=== PATIENT | female | born 1970 | race American Indian/Alaskan Native ===

== ENCOUNTER 2019-10-18 15:41 | Emergency (ER) | payer MEDICAID ==
--- NOTE | 2019-10-18 16:27 | EDM.PDOC ---
ED HPI GENERAL MEDICAL PROBLEM - General Chief Complaint: Neurological Problem Stated Complaint: MEDICAL [facility]IA [facility] Time Seen by Provider: 10/18/19 16:05 Source of Information: Reports: Patient, EMS History Limitations: Reports: No Limitations - History of Present Illness INITIAL COMMENTS - FREE TEXT/NARRATIVE: 49-year-old female with chronic seizure disorder, has occasional seizures while on her medication but a month ago she ran out of her medication and has not bothered filling the prescriptions. She does not have a phone call, she does not have a car for ride, the pharmacy does not deliver, she has several different excuses. She did not bring her empty pill bottles besides her "tore off the labels". According to the patient she has not had her medications for the past month, she had a seizure 1 week ago. She does have a contusion on her tongue but no other injury at this time, she is almost back to baseline. She was still postictal when EMS arrived in [place]. Onset: Sudden Duration: Hour(s): Location: Reports: Other (Only injury is to her tongue, no other complaints of pain) Associated Symptoms: Reports: No Other Symptoms - Related Data Allergies Allergy/AdvReac Type Severity Reaction Status Date / Time codeine Allergy Arrhythmias Verified 10/18/19 15:57 lithium Allergy Cannot Verified 10/18/19 16:37 Remember marbella Allergy Other Verified 10/18/19 16:37 nut - unspecified Allergy Rash Verified 10/18/19 16:38 sumatriptan [From Imitrex] Allergy Tachycardia Verified 10/18/19 16:37 Home Meds: Home Meds lamoTRIgine [Lamotrigine] 200 mg PO BID 10/18/19 [History] 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: Reports: 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 Social & Family History - Tobacco Use Smoking Status *Q: Current Every Day Smoker Years of Tobacco use: 35 Packs/Tins Daily: 0.1 Used Tobacco, but Quit: No - Caffeine Use Caffeine Use: Reports: None - Recreational Drug Use Recreational Drug Use: No ED ROS GENERAL - Review of Systems Review Of Systems: See Below Constitutional: Denies: Fever, Chills HEENT: Reports: Other (Contusion on her tongue, no visual changes) Respiratory: Denies: Shortness of Breath Cardiovascular: Denies: Chest Pain GI/Abdominal: Denies: Abdominal Pain, Nausea, Vomiting Skin: Reports: No Symptoms Neurological: Reports: Confusion (Still some slight confusion). Denies: Headache Psychiatric: Reports: Depression - Physical Exam Exam: See Below Exam Limited By: No Limitations General Appearance: Alert, No Apparent Distress Eye Exam: Bilateral Eye: EOMI, Normal Inspection, PERRL Throat/Mouth: Other (Small contusions on each side of the distal tongue, no laceration or active bleeding) Head Exam: Atraumatic Neck: Supple, Non-Tender Respiratory/Chest: Lungs Clear Cardiovascular: Regular Rate, Rhythm Neuro Exam (Abbreviated): Alert, Oriented, No Motor/Sensory Deficits Extremities: No: Pedal Edema Psychiatric: Normal Affect, Normal Mood Skin Exam: Warm, Dry Course - Vital Signs Last Recorded V/S: Last Vital Signs Temp 96.9 F 10/18/19 16:06 Pulse 75 10/18/19 17:44 Resp 14 10/18/19 16:58 BP 149/74 H 10/18/19 17:44 Pulse Ox 100 10/18/19 17:44 - Orders/Labs/Meds Meds: Medications Discontinued Medications Generic Name Dose Route Start Last Admin Trade Name Kevin PRN Reason Stop Dose Admin Acetaminophen 1,000 mg 10/18/19 16:53 10/18/19 16:57 Tylenol Extra Strength PO 10/18/19 16:54 1,000 mg ONETIME ONE Administration Lamotrigine 200 mg 10/18/19 16:49 10/18/19 16:57 Lamotrigine PO 10/18/19 16:50 200 mg ONETIME ONE Administration - Re-Assessments/Exams Free Text/Narrative Re-Assessment/Exam: 10/18/19 16:26 An attempt will be made to find the patient's regular medications and get her restarted. 10/18/19 16:53 Records were uncovered from [facility] that revealed that she was on lamotrigine 200 mg twice a day. She was given a 200 mg dose of lamotrigine and a prescription for 20 days worth of doses, with instructions to follow-up with her primary provider for any further prescriptions. She was also given 1000 mg for a moderate headache that she had developed after arrival. Departure - Departure Time of Disposition: 17:59 Disposition: Home, Self-Care 01 Clinical Impression: Seizure disorder, Noncompliance with medication regimen - Discharge Information Instructions: Seizure, Adult, [id number] Referrals: PCP,None [Primary Care Provider] - Forms: ED Department Discharge Care Plan Goals: It is very important that you fill your prescription and start taking your seizure medication as soon as possible. I would also recommend a recheck with your primary provider in the next 1 to 2 weeks. Sepsis Event Note - Evaluation Sepsis Screening Result: No Definite Risk - Focused Exam Date Exam was Performed: 10/19/19 Time Exam was Performed: 10:40
[2019-10-18] MEDS ORDERED: lamoTRIgine 100 MG Tab PO ONE (16:49)
[2019-10-18] MEDS ORDERED: Acetaminophen 500 MG Tab PO ONE (16:53)
== END 2019-10-18 17:59 | disposition home or self-care (01) ==
LOC: JP.ED 15:41
DX: G40.909 Epilepsy, unspecified, not intractable, without status epilepticus (principal); Z91.14 Patient's other noncompliance with medication regimen; Z88.5 Allergy status to narcotic agent; Z91.018 Allergy to other foods; Z88.8 Allergy status to other drugs, medicaments and biological substances; F17.210 Nicotine dependence, cigarettes, uncomplicated
CPT/HCPCS: 99284; A9270

== ENCOUNTER 2020-03-13 12:07 | Emergency (ER) | payer MEDICAID ==
[2020-03-13] MEDS ORDERED: Sodium Chloride 0.9% 10 ML Syringe FLUSH PRN (12:29)
[2020-03-13] MEDS ORDERED: Sodium Chloride 0.9% 1,000 ML IV SCH (12:30)
--- NOTE | 2020-03-13 12:34 | EDM.PDOC ---
ED HPI GENERAL MEDICAL PROBLEM - General Chief Complaint: Neuro Symptoms/Deficits Stated Complaint: MEDICAL VIA [facility] Time Seen by Provider: 03/13/20 12:31 Source of Information: Reports: Patient, EMS, RN Notes Reviewed History Limitations: Reports: Altered Mental Status - History of Present Illness INITIAL COMMENTS - FREE TEXT/NARRATIVE: 49-year-old female presents emergency department today via EMS services, EMS services were called to her home for reported seizure, she has a known seizure disorder. Did have altered mental status but was cooperative on arrival during transportation to the hospital she had active seizing per report by EMS was given 2.5 mg Versed, seizing stopped however she is in a post ictal obtunded state difficult to arouse at this time. Therefore no review of systems or HPI cannot be obtained from patient. Majority this is taken from chart review. Review of records so she was admitted to the hospital in [place] on February 10 at which time she had menorrhagia with significant blood loss hemoglobin was in the 4 level transfused 4 units of blood discharge hemoglobin of 9 was intended to follow-up in clinic couple days after discharge however I cannot appreciate any records from clinic follow-up. Medications indicates she is to be on lamotrigine 500 mg once a day in combination with Topamax 200 mg once a day - Related Data Allergies Allergy/AdvReac Type Severity Reaction Status Date / Time codeine Allergy Arrhythmias Verified 10/18/19 15:57 lithium Allergy Cannot Verified 10/18/19 16:37 Remember marbella Allergy Other Verified 10/18/19 16:37 nut - unspecified Allergy Rash Verified 10/18/19 16:38 sumatriptan [From Imitrex] Allergy Tachycardia Verified 10/18/19 16:37 Home Meds: Home Meds Topiramate [Topamax] 200 mg PO ASDIRECTED 03/13/20 [History] lamoTRIgine 200 mg PO ASDIRECTED 03/13/20 [History] lamoTRIgine [Lamotrigine] 300 mg PO ASDIRECTED 03/13/20 [History] Past Medical History Cardiovascular History: Reports: Hypertension Other Cardiovascular History: essential hypertension 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 Endocrine/Metabolic History: Reports: Diabetes, Type I Hematologic History: Reports: Anemia Other Hematologic History: microcytic anemia Social & Family History - Caffeine Use Caffeine Use: Reports: None ED ROS GENERAL - Review of Systems Review Of Systems: Unable To Obtain Reason Not Obtained: Postictal ED EXAM, NEURO - Physical Exam Exam: See Below Exam Limited By: Altered Mental Status General Appearance: Obtunded Eye Exam: Bilateral Eye: PERRL Respiratory/Chest: No Respiratory Distress, Lungs Clear, Normal Breath Sounds Cardiovascular: Regular Rate, Rhythm, No Murmur Course - Vital Signs Last Recorded V/S: Last Vital Signs Temp 96.8 F L 03/13/20 12:14 Pulse 92 03/13/20 15:10 Resp 15 03/13/20 15:10 BP 146/93 H 03/13/20 15:10 Pulse Ox 95 03/13/20 12:14 - Orders/Labs/Meds Orders: Active Orders 24 hr Category Date Time Status Peripheral IV Care [RC] . DIRECTED Care 03/13/20 12:30 Active DRUG SCREEN, URINE [URCHEM] Stat Lab 03/13/20 12:30 Ordered LAMOTRIGINE (LAMICTAL), SERUM Stat Lab 03/13/20 12:42 Received UA W/MICROSCOPIC [URIN] Stat Lab 03/13/20 12:29 Ordered Sodium Chloride 0.9% [Normal Saline] 1,000 ml Med 03/13/20 12:30 Active IV ASDIRECTED Sodium Chloride 0.9% [Saline Flush] Med 03/13/20 12:29 Active 10 ml FLUSH ASDIRECTED PRN Peripheral IV Insertion Adult [OM.PC] Urgent Oth 03/13/20 12:29 Ordered Medication Orders Sodium Chloride (Normal Saline) 1,000 mls @ 125 mls/hr IV ASDIRECTED DARINEL Last Admin: 03/13/20 12:54 Dose: 125 mls/hr Documented by: RL Sodium Chloride (Saline Flush) 10 ml FLUSH ASDIRECTED PRN PRN Reason: Keep Vein Open Last Admin: 03/13/20 12:54 Dose: 10 ml Documented by: RL Labs: Laboratory Tests 03/13/20 03/13/20 03/13/20 Range/Units 12:42 12:42 12:42 WBC 7.8 (4.5-11.0) K/uL RBC 4.44 (3.30-5.50) M/uL Hgb 9.7 L (12.0-15.0) g/dL Hct 32.1 L (36.0-48.0) % MCV 72 L (80-98) fL MCH 22 L (27-31) pg MCHC 30 L (32-36) % Plt Count 294 (150-400) K/uL Neut % (Auto) 85 H (36-66) % Lymph % (Auto) 9 L (24-44) % [place] % (Auto) 5 (2-6) % Eos % (Auto) 1 L (2-4) % Baso % (Auto) 0 (0-1) % Sodium 133 L (140-148) mmol/L Potassium 3.7 (3.6-5.2) mmol/L Chloride 99 L (100-108) mmol/L Carbon Dioxide 19 L (21-32) mmol/L Anion Gap 18.7 H (5.0-14.0) mmol/L BUN 11 (7-18) mg/dL Creatinine 1.2 H (0.6-1.0) mg/dL Est Cr Clr Drug Dosing TNP Estimated GFR (MDRD) 48 L (>60) Glucose 114 H (74-106) mg/dL Lactic Acid 7.2 H (0.4-2.0) mmol/L Calcium 8.6 (8.5-10.1) mg/dL Total Bilirubin 0.4 (0.2-1.0) mg/dL AST 21 (15-37) U/L ALT 22 (12-78) U/L Alkaline Phosphatase 141 H (46-116) U/L Total Protein 7.6 (6.4-8.2) g/dL Albumin 3.6 (3.4-5.0) g/dL Globulin 4.0 H (2.3-3.5) g/dL Albumin/Globulin Ratio 0.9 L (1.2-2.2) Salicylates (2.0-20.0) mg/dL Acetaminophen 0.0 L (10.0-30.0) ug/mL Ethyl Alcohol mg/dL 03/13/20 03/13/20 Range/Units 12:42 12:42 WBC (4.5-11.0) K/uL RBC (3.30-5.50) M/uL Hgb (12.0-15.0) g/dL Hct (36.0-48.0) % MCV (80-98) fL MCH (27-31) pg MCHC (32-36) % Plt Count (150-400) K/uL Neut % (Auto) (36-66) % Lymph % (Auto) (24-44) % [place] % (Auto) (2-6) % Eos % (Auto) (2-4) % Baso % (Auto) (0-1) % Sodium (140-148) mmol/L Potassium (3.6-5.2) mmol/L Chloride (100-108) mmol/L Carbon Dioxide (21-32) mmol/L Anion Gap (5.0-14.0) mmol/L BUN (7-18) mg/dL Creatinine (0.6-1.0) mg/dL Est Cr Clr Drug Dosing Estimated GFR (MDRD) (>60) Glucose (74-106) mg/dL Lactic Acid (0.4-2.0) mmol/L Calcium (8.5-10.1) mg/dL Total Bilirubin (0.2-1.0) mg/dL AST (15-37) U/L ALT (12-78) U/L Alkaline Phosphatase (46-116) U/L Total Protein (6.4-8.2) g/dL Albumin (3.4-5.0) g/dL Globulin (2.3-3.5) g/dL Albumin/Globulin Ratio (1.2-2.2) Salicylates 2.1 (2.0-20.0) mg/dL Acetaminophen (10.0-30.0) ug/mL Ethyl Alcohol < 3 mg/dL Meds: Medications Generic Name Dose Route Start Last Admin Trade Name Freq PRN Reason Stop Dose Admin Sodium Chloride 1,000 mls @ 125 mls/hr 03/13/20 12:30 03/13/20 12:54 Normal Saline IV 125 mls/hr ASDIRECTED DARINEL Administration Sodium Chloride 10 ml 03/13/20 12:29 03/13/20 12:54 Saline Flush FLUSH 10 ml ASDIRECTED PRN Administration Keep Vein Open Discontinued Medications Generic Name Dose Route Start Last Admin Trade Name Freq PRN Reason Stop Dose Admin Lamotrigine 500 mg 03/13/20 15:51 Lamotrigine PO 03/13/20 15:52 ONETIME ONE Topiramate 200 mg 03/13/20 15:51 Topamax PO 03/13/20 15:52 NOW STA Departure - Departure Time of Disposition: 15:54 Disposition: Home, Self-Care 01 Condition: Poor Clinical Impression: Seizure disorder, Noncompliance with medication regimen - Discharge Information Instructions: Seizure, Adult, [id number] Referrals: PCP,None [Primary Care Provider] - Forms: ED Department Discharge Additional Instructions: Restart your seizure medications, please followup with your primary care provider in 3-5 days if not better, please call return to the emergency depar tment with worsening of symptoms. Sepsis Event Note (ED) - Evaluation Sepsis Screening Result: No Definite Risk - Focused Exam Vital Signs: Vital Signs Temp Pulse Resp BP Pulse Ox 03/13/20 15:10 92 15 146/93 H 03/13/20 14:40 90 18 146/86 H 03/13/20 14:11 93 23 H 141/91 H 03/13/20 13:40 94 125/71 03/13/20 12:14 96.8 F L 101 H 27 H 145/65 H 95 - My Orders Last 24 Hours: My Active Orders 03/13/20 12:29 UA W/MICROSCOPIC [URIN] Stat Sodium Chloride 0.9% [Saline Flush] 10 ml FLUSH ASDIRECTED PRN Peripheral IV Insertion Adult [OM.PC] Urgent 03/13/20 12:30 Peripheral IV Care [RC] . DIRECTED DRUG SCREEN, URINE [URCHEM] Stat Sodium Chloride 0.9% [Normal Saline] 1,000 ml IV ASDIRECTED 03/13/20 12:42 LAMOTRIGINE (LAMICTAL), SERUM Stat - Assessment/Plan Last 24 Hours: My Active Orders 03/13/20 12:29 UA W/MICROSCOPIC [URIN] Stat Sodium Chloride 0.9% [Saline Flush] 10 ml FLUSH ASDIRECTED PRN Peripheral IV Insertion Adult [OM.PC] Urgent 03/13/20 12:30 Peripheral IV Care [RC] . DIRECTED DRUG SCREEN, URINE [URCHEM] Stat Sodium Chloride 0.9% [Normal Saline] 1,000 ml IV ASDIRECTED 03/13/20 12:42 LAMOTRIGINE (LAMICTAL), SERUM Stat Plan: Assessment Acuity = acute Site and laterality = generalized tonic-clonic seizure Etiology = medical compliance Manifestations = none Location of injury = Home Lab values = hemoglobin low 9.7 consistent microchromic anemia sodium low at 133 consistent hyponatremia creatinine elevated 1.2 consistent chronic renal failure stage G3 a lactic acid elevated 7.2 consistent with lactic acidosis consistent with seizure type activity alcohol is negative Plan She does admit to not taking her medications due to access, we have restarted her medications today she was post ictal for several hours but now is able to communicate she does have a ride home she states she does have access to her medications now. Have her follow-up with her primary care as needed This note was dictated using [employer] voice recognition software please call with any questions on syntax or grammar.
[2020-03-13] MEDS ORDERED: Topiramate 100 MG Tab PO STA (15:51)
[2020-03-13] MEDS ORDERED: lamoTRIgine 100 MG Tab PO ONE (15:51)
== END 2020-03-13 16:40 | disposition home or self-care (01) ==
LOC: JP.ED 12:07
DX: G40.909 Epilepsy, unspecified, not intractable, without status epilepticus (principal); Z91.14 Patient's other noncompliance with medication regimen; I10 Essential (primary) hypertension; E10.9 Type 1 diabetes mellitus without complications; Z88.5 Allergy status to narcotic agent; Z88.8 Allergy status to other drugs, medicaments and biological substances; Z91.018 Allergy to other foods
CPT/HCPCS: 36415; 80053; 80175; 80307; 83605; 85025; 99285; A9270; J7030

== ENCOUNTER 2022-10-01 14:50 | Emergency (ER) | payer MEDICAID, SELFPAY ==
[2022-10-01 15:32] LABS: AMPHETAMINES SCREEN, URINE PRESUMPTIVE POSITIVE (NEGATIVE); BARBITURATE SCREEN,URINE NEGATIVE (NEGATIVE); BENZODIAZEPINES SCREEN,URINE NEGATIVE (NEGATIVE); METHADONE SCREEN, URINE NEGATIVE (NEGATIVE); METHAMPHETAMINES SCREEN, URINE PRESUMPTIVE POSITIVE (NEGATIVE); OXYCODONE SCREEN,URINE NEGATIVE (NEGATIVE)
[2022-10-01 15:33] LABS: BASOPHILS ABSOLUTE AUTO 0.03 K/uL (0.00-0.10); BASOPHILS PERCENT AUTO 0.5 % (0.1-1.3); EOSINOPHILS ABSOLUTE AUTO 0.08 K/uL (0.00-0.40); EOSINOPHILS PERCENT AUTO 1.4 % (0.0-5.4); HEMATOCRIT 30.5 % (34.3-46.0); HEMOGLOBIN 9.2 g/dL (11.2-15.5); IMMATURE GRAN ABSOLUTE AUTO 0.01 K/uL (0.00-0.23); IMMATURE GRAN PERCENT AUTO 0.2 % (0.0-0.7); LYMPHOCYTES ABSOLUTE AUTO 1.18 K/uL (0.8-3.3); LYMPHOCYTES PERCENT AUTO 20.2 % (11.4-47.7); MEAN CORPUSCULAR HEMOGLOBIN 23.1 pg (31.6-35.5); MEAN CORPUSCULAR HGB CONC 30.2 g/dL (31.6-35.5); MEAN CORPUSCULAR VOLUME 76.6 fL (81.4-99.0); MONOCYTES ABSOLUTE AUTO 0.28 K/uL (0.20-0.90); MONOCYTES PERCENT AUTO 4.8 % (3.3-12.6); NEUTROPHILS ABSOLUTE AUTO 4.27 K/uL (1.0-7.6); NEUTROPHILS PERCENT AUTO 72.9 % (40.0-78.1); PLATELET COUNT,PLT 355 K/uL (130-375); RED BLOOD CELL COUNT 3.98 M/uL (3.77-5.24); WHITE BLOOD CELL COUNT,WBC 5.9 K/uL (3.2-11.0)
[2022-10-01 15:33] LABS: PROPOXYPHENE SCREEN,URINE NEGATIVE (NEGATIVE); THC SCREEN,URINE 50 NG/ML NEGATIVE (NEGATIVE)
[2022-10-01 15:39] LABS: APPEARANCE,URINE CLOUDY (CLEAR); BILIRUBIN,URINE SMALL (NEGATIVE); COLOR,URINE RED (YELLOW); GLUCOSE,URINE NEGATIVE (NEGATIVE); KETONES,URINE TRACE mg/dL (NEGATIVE); NITRITE,URINE POSITIVE (NEGATIVE); OCCULT BLOOD,URINE LARGE (NEGATIVE); PROTEIN,URINE >=300 mg/dL (NEGATIVE)
[2022-10-01 15:41] LABS: AMORPHOUS SEDIMENT,URINE NOT SEEN; BACTERIA,URINE MODERATE; EPITHELIAL CELLS,URINE NOT SEEN; MUCUS,URINE NOT SEEN; RBC,URINE PACKED (0-5)
[2022-10-01 15:42] LABS: LEUKOCYTE ESTERASE,URINE NEGATIVE (NEGATIVE)
[2022-10-01 15:48] LABS: CALCIUM 8.3 mg/dL (8.5-10.1); EST CRCL DRUG DOSING (CG) 58.12 mL/min; MAGNESIUM 2.2 mg/dL (1.8-2.4); POTASSIUM,K 3.5 mmol/L (3.6-5.2)
[2022-10-01 15:52] LABS: ANION GAP 13.5 mmol/L (5.0-14.0)
== END 2022-10-01 16:41 | disposition home or self-care (01) ==
LOC: JP.ED 14:50
DX: N30.01 Acute cystitis with hematuria (principal); F15.10 Other stimulant abuse, uncomplicated; I10 Essential (primary) hypertension; E10.9 Type 1 diabetes mellitus without complications; Z88.5 Allergy status to narcotic agent; Z91.018 Allergy to other foods; Z91.048 Other nonmedicinal substance allergy status; Z88.8 Allergy status to other drugs, medicaments and biological substances; Z79.899 Other long term (current) drug therapy
CPT/HCPCS: 80048; 80175; 80201; 80305-QW; 81001; 83735; 84702; 85025; 87086; 87088; 87186; 99284

== ENCOUNTER 2024-10-24 15:01 | Emergency (ER) | payer MEDICAID | END 2024-10-24 17:36 | disposition home or self-care (01) | LOC: JP.ED 15:01 → MERGE 15:01 → JP.ED 17:36 | DX: S62.101A Fracture of unspecified carpal bone, right wrist, initial encounter for closed fracture (principal); I10 Essential (primary) hypertension; F17.200 Nicotine dependence, unspecified, uncomplicated; W10.9XXA Fall (on) (from) unspecified stairs and steps, initial encounter | CPT/HCPCS: 29125; 36415; 73110-26-RT; 73110-RT; 80307; 83605; 99283-25 ==